=== PATIENT | female | born 2000 | race Caucasian/White ===

== ENCOUNTER → 2021-12-11 13:11 | Outpatient (CLI) | payer BC, SELFPAY ==
--- NOTE | ~2021-12-11 | CT_ITS ---
EXAMINATION: CT diagnostic chest w con DATE: 12/11/2021 13:44 INDICATION: Night sweats and fever TECHNIQUE: Transaxial computed tomographic images of the chest were obtained after the administration of 75 cc of Omnipaque 350 intravenous contrast. The dose-length product (DLP) was 138.61 mGy-cm. Ite rative reconstruction was used. COMPARISON: None FINDINGS: The lungs are free of acute opacities. There is no pleural effusion or pneumothorax. No pat hologically enlarged thoracic lymph nodes are identified. The heart size is normal. There are cluster ed nodules in the left lower lobe which may be infectious or inflammatory. The visualized osseous str uctures are unremarkable. Triangular soft tissue density in the anterior mediastinum is consistent wi th residual thymus. IMPRESSION: 1. Clustered left lower lobe nodules which are likely infectious or inflammatory. Reviewed, dictated and finalized at location B. IMPRESSION: 1. Clustered left lower lobe nodules which are likely infectious or inflammator y.
== END ==
PROVIDERS: PCP Family Medicine; Visit Provider Pediatrics
DX: R50.9 Fever, unspecified (principal); R59.9 Enlarged lymph nodes, unspecified; R91.1 Solitary pulmonary nodule
CPT/HCPCS: 71260; Q9967